=== PATIENT | female | born 1985 | race Caucasian/White ===

== ENCOUNTER 2016-08-13 10:41 | Emergency (ER) ==
[2016-08-13 10:57] LABS: URINE SOURCE CLEAN CATCH
--- NOTE | 2016-08-13 10:59 | PROVIDER DOCUMENTATION ---
HPI-General Adult - General Chief Complaint: Flank Pain Stated Complaint: FLANK PAIN Time Seen by Provider: 08/13/16 10:50 Source: patient Allergies/Adverse Reactions: Patient Allergies Allergy/AdvReac Type Severity Reaction Status Date / Time No Known Allergies Allergy Verified 09/27/15 20:51 - History of Present Illness -Gen Adult Nature of Presenting Problems: Pt. is 31 yof that presents with c/o left flank pain that began last night. Pt. reports she woke up to use the bathroom and states it began to hurt. Pt. reports a Hx of kidney stones and states that today her urine has blood in it. Location of Pain/Injury: reports: back. denies: head, face, mouth, neck, chest , upper extremity, hand(s), abdomen, pelvis, genitalia, lower extremity, feet, upper body, lower body, generalized Pain Radiation: reports: no radiation Quality of Pain: reports: aching. denies: burning, cramping, dull, fullness, indigestion, pressure, sharp, stabbing, tearing, throbbing, tightness Severity: reports: moderate. denies: mild, severe Onset/Duration: reports: abrupt, last night Timing: reports: still present. denies: improving, gone now, resolved prior to arrival, intermittent, constant, changing over time, getting worse Context/Activities at Onset: reports: none. denies: recent emotional stress, recent physical stress, recent trauma history, possible bad food, cold exposure , out of country travel Modifying Factors: improves with: nothing Associated Symptoms: reports: back/neck pain, genitourinary problems, nausea. denies: anxiety, arm pain, chest pain, constipation, cough, diaphoresis, diarrhea, dizziness, EENT symptoms, fatigue, fever/chills, headaches, heartburn , joint pain, loss of appetite, malaise, muscle aches, sinus congestion/drainage , rash, seizure, shortness of breath, sensory/motor loss, pain with inspiration , swelling/mass in abdomen, syncope, vomiting, weakness, trouble walking Similar Symptoms Previously?: Yes Recently seen or treated by another doctor?: No Review of Systems - Adult - REVIEW OF SYSTEMS - ADULT Constitutional: reports: see HPI. denies: chills, fever, fatique Eyes: reports: see HPI. denies: discharge, blurred vision, double vision, eye pain Ears, Nose, Mouth & Throat: reports: see HPI. denies: ear discharge, ear pain, hearing loss, nose pain, loose teeth, mouth/dental pain Cardiovascular: reports: see HPI. denies: chest pain, irregular heart rate, orthopnea, syncope Respiratory: reports: see HPI. denies: cough, dyspnea on exertion, shortness of breath, wheezing Gastrointestinal: reports: see HPI, nausea. denies: abdominal pain, hematemesis , diarrhea, difficulty swallowing, frequent heartburn, vomiting Genitourinary: reports: see HPI, flank pain, hematuria. denies: dysuria, discharge, hesitency, incontinence, urgency Musculoskeletal: reports: see HPI. denies: bone pain, back pain, joint pain, joint swelling Integumentary: reports: see HPI. denies: hives, itching, rash, skin thickening Neurological: reports: see HPI. denies: ataxia, headache/migraines, numbness, seizure, tremors Psychiatric: reports: see HPI. denies: anxiety, depression, insomnia, panic attacks, suicidal thoughts Past History - Adult - PAST MEDICAL HISTORY-ADULT Review of Records: reports: Old Records Reviewed, Nursing Assessment Review, Medications Reviewed, Social history reviewed & non-contributory. Major Childhood Illnesses: reports: denies history Cardiovascular: reports: denies history Respiratory: reports: denies history Gastrointestinal: reports: denies history Genitourinary: reports: denies history Musculoskeletal: reports: denies history Neurological: reports: denies history Endocrine/Immune: reports: denies history Other Conditions: reports: denies history - PRIOR SURGERIES/PROCEDURES Surgical/Procedure History: reports: cholecystectomy - PRIOR HOSPITALIZATIONS Prior Hospitalizations: reports: none - FAMILY HISTORY Family History: reviewed, not pertinent Physical Exam-General - PHYSICAL EXAM-ADULT Initial Vital Signs Reviewed: Yes - CONSTITUTIONAL General Appearance: alert, moderate distress, obese. negative: thin, anxious, lethargic, slow to respond, obtunded, combative - EYES Eyes: PERRL/EOMI, pink conjunctivae. negative: conjuctival exudate, photophobia , subconjunctival hemorrhage - HEAD, EARS, NOSE, MOUTH & THROAT HENMT: normocephalic/atraumatic, moist mucous membranes. negative: angioedema, frontal tenderness, maxillary tenderness - NECK Neck: non-tender, full range of motion, supple, normal inspection. negative: lymphadenopathy, trachial deviation, thyromegaly - RESPIRATORY Respiratory: lungs clear, normal breath sounds. negative: crackles, rales, rhonchi, stridor, wheezing - CARDIOVASCULAR Cardiovascular: normal peripheral pulses, regular rate, rhythm, no edema, no JVD , no murmur. negative: extra beats, friction rub, irregularly irregular - CHEST (BREASTS) Chest/Breast: deferred - GASTROINTESTINAL (ABDOMEN) Abdominal Exam: normal bowel sounds, non tender, soft. negative: distended, guarding, rigid, rebound, tenderness, hernia, mass - GENITOURINARY Female Genitalia/Pelvic Exam: deferred Rectal Exam: deferred Hemoccult Exam: deferred - LYMPHATIC Lymphatic: no adenopathy. negative: axilla node tender, cervical node tenderness - MUSCULOSKELETAL Back Exam: normal inspection, no CVA tenderness, no vertebral tenderness. negative: decreased range of motion, muscle spasm, vertebral tenderness Extremity: normal range of motion, non-tender, normal gait, normal inspection. negative: deformity, erythema, inflammation, swelling, tenderness Peripheral Pulses: radial (R): 2+, radial (L): 2+ - SKIN Integumentary: normal color, normal turgor, warm/dry. negative: cyanosis, diaphoresis, ecchymosis, erythema, jaundice, mottled, pallor, petechiae, purpura , rash, swelling, tenderness - NEUROLOGIC Neurologic: grossly normal, no motor/sensory deficits. negative: abnormal gait , facial droop, focal weakness, motor weakness, sensory deficit - PSYCHIATRIC Psych/Mental Status: normal mood/affect, normal thought content, normal thought process, oriented x 3. negative: anxious, paranoid, tearful Progress - PLAN OF CARE/RESULTS Progress/Plan/Lab Results: Discussed results and plan of care with patient. Patient agrees with plan and verbalizes understanding. Vital Signs Temp Pulse Resp BP Pulse Ox 08/13/16 10:45 98 F 75 18 137/84 100 No Known Allergies Allergy (Verified 09/27/15 20:51) Cyclobenzaprine [Flexeril] 10 mg PO TID #20 tablet 09/27/15 Prednisone 10 mg PO DIRECTED #9 tablet 09/27/15 Cyclobenzaprine [Flexeril] 10 mg PO TID #30 tablet 07/14/16 Hydrocodone/APAP 5 mg/325 mg [[place]-5] 1 - 2 tab PO Q6H PRN PRN #18 tablet 07/14 Laboratory 08/13/16 08/13/16 10:35 10:30 Urine Source CLEAN CATCH Urine Color RED Urine Clarity BLOODY A Urine pH 7.0 Ur Specific [place] 1.015 Urine Protein 1+(30 mg/dL) A Urine Ketones TRACE Urine Blood 4+ Urine Nitrite NEGATIVE Urine Bilirubin NEGATIVE Urine Urobilinogen NORMAL Urine Microscopic RBC TNTC A Urine WBC TRACE A Urine Microscopic WBC 1-5 Ur Epithelial Cells <10 Urine Glucose NEGATIVE Urine Test NEGATIVE Orders Category Date Time Status RENAL STONE SEARCH [CT] Stat Exams 08/13/16 10:53 Taken TEST-URINE [PREG] Stat Lab 08/13/16 10:[address] [URINALYSIS] Stat Lab 08/13/16 10:35 Completed URINE MICROSCOPIC [URINALYSIS] Stat Lab 08/13/16 10:35 Completed Laboratory Tests 08/13/16 08/13/16 10:30 10:35 Urine Source CLEAN CATCH Urine Color RED Urine Clarity BLOODY A Urine pH 7.0 Ur Specific [place] 1.015 Urine Protein 1+(30 mg/dL) A Urine Ketones TRACE Urine Blood 4+ Urine Nitrite NEGATIVE Urine Bilirubin NEGATIVE Urine Urobilinogen NORMAL Urine Microscopic RBC TNTC A Urine WBC TRACE A Urine Microscopic WBC 1-5 Ur Epithelial Cells <10 Urine Glucose NEGATIVE Urine Test NEGATIVE Departure - Departure Time of Disposition Order: 12:10 DIAGNOSIS: Kidney stone Disposition: HOME 01 Certified Medical Emergency: Emergent Condition: Stable Additional Instructions: Follow up with primary care physician Take medications as directed Follow up with urologist Return to ED for any concerns or worsening of symptoms ED Follow Up Instructions: You have been treated by a care provider in the Emergency Department. These instructions are being provided to you so you can have an understanding of how to care for yourself upon discharge. Upon discharge from the Emergency Department, you are responsible for making arrangements for follow-up care by a physician of your choice. Take all prescribed medications as directed. Return to the Emergency Department immediately for any new or worsening symptoms. You may call the Physician Referral phone number at [phone] to obtain a list of Physicians who are taking new patients. Prescriptions: Tamsulosin [Flomax] 0.4 mg PO DAILY #20 capsule Hydrocodone/APAP 7.5 mg/325 mg [[place]-7.5] 1 each PO Q6H PRN PRN #12 tablet PRN Reason: Pain Metoclopramide [Reglan] 10 mg PO Q6HR PRN #20 tablet PRN Reason: Nausea Referrals: Vito Grant [Primary Care Provider] - Rui Salmeron DO [STAFF PHYSICIAN] - Attestation - Physician/ Mid-level Attestation Patient care was provided by Mid-level provider ([employer]/PA):: Yes Mid-level provider:: Juan Alcaraz Mid-level documentation review:: The Mid-level provider documentation, treatment plan and medical decision making was reviewed by the physician who agrees with all treatment and medical decision making by the MLP.
[2016-08-13 11:06] LABS: BILIRUBIN URINE NEGATIVE (NEGATIVE); BLOOD URINE 4+ (NEGATIVE); CLARITY BLOODY (CLEAR); COLOR RED; GLUCOSE URINE NEGATIVE (NEGATIVE); LEUKOCYTES URINE TRACE (NEGATIVE); NITRITE URINE NEGATIVE (NEGATIVE); PROTEIN URINE 1+(30 mg/dL) mg/dL (NEGATIVE); SP GRAVITY URINE 1.015; URINE MICROSCOPIC NEEDED? YES; UROBILINOGEN URINE NORMAL
[2016-08-13 11:18] LABS: URINE EPITHELIAL CELLS <10 /HPF (<10); URINE RBC TNTC /HPF (<10)
[2016-08-13] MEDS ORDERED: ZOFRAN ODT PO ONE (12:13)
[2016-08-13] MEDS ORDERED: TORADOL IM ONE (12:13)
--- NOTE | 2016-08-13 12:16 | Diag Imaging Result Document ---
PROCEDURE NAME: RENAL STONE SEARCH - 08/13/2016 CT ABDOMEN AND PELVIS, 08/13/2016: COMPARISON: None. FINDINGS: There is a tiny nonobstructing right renal stone measuring about 2 mm. No left-sided stones. There is no hydronephrosis or hydroureter. Urinary bladder, uterus, ovaries, and rectum are normal. No bowel obstruction or inflammation. Bony structures are intact. IMPRESSION: Tiny nonobstructing right renal stone. Otherwise, no acute disease.
[2016-08-13 12:28] VITALS: BP 131/77
== END 2016-08-13 12:27 | disposition home or self-care (01) ==
LOC: P.ED 10:41
DX: N20.0 Calculus of kidney (principal); R10.9 Unspecified abdominal pain; R31.9 Hematuria, unspecified; M54.9 Dorsalgia, unspecified; R11.0 Nausea; E66.9 Obesity, unspecified; Z87.442 Personal history of urinary calculi
CPT/HCPCS: 74176; 81001; 81025; 96372; J1885

== ENCOUNTER 2016-10-23 16:02 | Emergency (ER) ==
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
--- NOTE | 2016-10-23 17:19 | Diag Imaging Result Document ---
PROCEDURE NAME: HEAD W/O CONTRAST - 10/23/[address]: A CT dose reduction protocol was used. COMPARISON: 07/14/2016. FINDINGS: The ventricles and sulci are normal in size and contour. There is no mass, hemorrhage, or evidence of acute ischemia. The bony calvaria is intact. The visualized paranasal sinuses and mastoid air cells are clear. IMPRESSION: Negative head CT. MTDD
[2016-10-23 17:20] VITALS: BP 105/65
== END 2016-10-23 17:23 | disposition home or self-care (01) ==
LOC: P.ED 16:02
DX: S00.03XA Contusion of scalp, initial encounter (principal); T63.301A Toxic effect of unspecified spider venom, accidental (unintentional), initial encounter; R42 Dizziness and giddiness; R51 Headache; R11.2 Nausea with vomiting, unspecified; R50.9 Fever, unspecified; L53.9 Erythematous condition, unspecified; G89.29 Other chronic pain; M54.9 Dorsalgia, unspecified; F17.210 Nicotine dependence, cigarettes, uncomplicated; Z85.41 Personal history of malignant neoplasm of cervix uteri; Z87.442 Personal history of urinary calculi; Y04.2XXA Assault by strike against or bumped into by another person, initial encounter
CPT/HCPCS: 70450